=== PATIENT | female | born 1980 | race Caucasian/White ===

== ENCOUNTER 2017-09-04 19:10 | Emergency (ER) | payer BC, OTHER ==
[2017-09-04] MEDS ORDERED: diphenhydrAMINE 50 MG/ML VIAL ONE (19:47)
[2017-09-04] MEDS ORDERED: Ketorolac Tromethamine 30 MG/ML VIAL ONE (19:47)
[2017-09-04] MEDS ORDERED: Metoclopramide HCl 10 MG/2 ML VIAL ONE (19:48)
[2017-09-04 20:00] LABS: #Basophils 0.1 thou/uL (0.0-0.2); #Eosinphils 0.4 thou/uL (0.0-0.7); #Monocytes 0.9 thou/uL (0.11-0.59); #Neutrophils 4.4 thou/uL (1.40-6.50); %Basophils 0.9 % (0.0-1.0); %Eosinophils 4.2 % (0.0-10.0); %Lymphocytes 34.7 % (21.0-51.0); %Monocytes 9.8 % (0.0-10.0); %Neutrophils 50.4 % (42.0-75.0); Hemoglobin 14.2 g/dL (12.0-16.0); Mean Corpuscular HGB CONC 36.1 g/dL (32.0-36.0); Mean Corpuscular Hemoglobin 29.2 pg (27.0-31.0); Mean Corpuscular Volume 80.7 fl (81.0-99.0); Mean Platelet Volume 7.1 fL (7.4-10.4); Platelet Count 251 thou/uL (130-400); RBC Distribution Width 11.6 % (11.5-14.5); Red Blood Cell (RBC) Count 4.87 mill/uL (4.20-5.40); White Blood Cell (WBC) Count 8.8 thou/uL (4.8-10.8)
[2017-09-04] MEDS ORDERED: Haloperidol Lactate 5 MG/ML VIAL ONE (20:18)
[2017-09-04] MEDS ORDERED: methylPREDNISolone Sod Succ/PF 125 MG/2 ML VIAL ONE (20:18)
== END 2017-09-04 21:15 | disposition home or self-care (01) ==
LOC: BURERS 19:10
DX: G43.909 Migraine, unspecified, not intractable, without status migrainosus (principal); E05.00 Thyrotoxicosis with diffuse goiter without thyrotoxic crisis or storm; Z79.899 Other long term (current) drug therapy
CPT/HCPCS: 85025; 96374; 96375; J1200; J1630; J1885; J2765; J2930